=== PATIENT | female | born 1960 | race African-American/Black ===

== ENCOUNTER 2024-08-12 13:27 | Inpatient (IN) | payer MEDICAID, OTHER ==
[~2024-08-12] VITALS: Ht 167.6 cm; Wt 113.4 kg
[2024-08-12] MEDS ORDERED: NICO-724 PO (14:18)
[2024-08-12] MEDS ORDERED: AMLO-212 PO (14:18)
[2024-08-12] MEDS ORDERED: BUPR-53 PO (14:18)
[2024-08-12] MEDS ORDERED: BUPR-78 PO (14:18)
[2024-08-12 14:45] LABS: BASOPHILS % (AUTO) 0.4 % (0.0-2.0); EOSINOPHILS % (AUTO) 0.5 % (0.0-7.0); HEMATOCRIT 40.7 % (31.2-41.9); HEMOGLOBIN 13.4 g/dL (10.9-14.3); LYMPHOCYTES # (AUTO) 0.9 K/uL (0.8-4.8); MEAN CORPUSCULAR HGB CONC 33 g/dL (32.3-35.6); MEAN CORPUSCULAR VOLUME 97.2 fL (75.5-95.3); MONOCYTES # (AUTO) 0.6 K/uL (0.1-1.30); MONOCYTES % (AUTO) 10.7 % (0.0-11.0); NEUTROPHILS # (AUTO) 3.7 K/uL (1.8-8.9); NEUTROPHILS % (AUTO) 71.4 % (38.5-71.5); PLATELET COUNT (AUTO) 319 K/uL (179-408); RED BLOOD CELL COUNT(AUTO) 4.18 MIL/uL (3.63-4.92); RED CELL DISTRIBUTION WIDTH 13.3 % (12.3-17.7); WHITE BLOOD COUNT (AUTO) 5.2 K/uL (3.8-11.8)
[2024-08-12 14:46] LABS: DIFFERENTIAL COMMENT 1
[2024-08-12 14:48] LABS: CALCIUM 9.4 mg/dL (8.5-10.1); CARBON DIOXIDE 30 mmol/L (21-32); CHLORIDE 99 mmol/L (98-107); CREATININE 0.8 mg/dL (0.6-1.3); GLUCOSE 86 mg/dL (74-106); POTASSIUM 3.9 mmol/L (3.5-5.1); SODIUM SERUM 139 mmol/L (136-145); UREA NITROGEN, BLOOD 13 mg/dL (7-18)
[2024-08-12 14:59] LABS: ALANINE AMINOTRANSFERASE 53 U/L (14-59); ALBUMIN 4.1 g/dL (3.4-5.0); ALKALINE PHOSPHATASE 93 U/L (50-136); ASPARTATE AMINOTRANSFERASE 46 U/L (15-37); BILIRUBIN,DIRECT 0.2 mg/dL (0.0-0.2); BILIRUBIN,TOTAL 0.5 mg/dL (0.2-1.0); NT-PRO BNP 526 pg/mL (0-125); TOTAL PROTEIN, SERUM 8.4 g/dL (6.4-8.2)
[2024-08-12] MEDS ORDERED: hydrALAZINE HCL 20 MG/1 ML VIAL ONE ×2 (16:08→18:17)
[2024-08-12] MEDS ORDERED: MORPHINE SULFATE 4 MG/1 ML DISP.SYRIN ONE (16:08)
[2024-08-12] MEDS ORDERED: ONDANSETRON 4 MG/2 ML VIAL ONE ×2 (16:08→20:22)
[2024-08-12] MEDS: hydrALAZINE HCL 20 MG/1 ML VIAL IV ONE ×2 (16:20→18:19)
[2024-08-12] MEDS: MORPHINE SULFATE 4 MG/1 ML DISP.SYRIN IV ONE (16:21)
[2024-08-12] MEDS: ONDANSETRON 4 MG/2 ML VIAL IV ONE ×2 (16:21→19:25)
[2024-08-12] MEDS ORDERED: FENTANYL CITRATE 100 MCG/2 ML AMPUL ONE (16:29)
[2024-08-12] MEDS: FENTANYL CITRATE 100 MCG/2 ML AMPUL IV ONE (16:33)
[2024-08-12] MEDS ORDERED: ACETAMINOPHEN 325 MG TABLET PO PRN (18:30)
[2024-08-12] MEDS ORDERED: hydrALAZINE HCL 20 MG/1 ML VIAL IV PRN (18:30)
[2024-08-12] MEDS ORDERED: MAGNESIUM HYDROXIDE 30 ML LIQUID UDC PO PRN (18:30)
[2024-08-12] MEDS ORDERED: REMEDY ESSENTIAL ZINC PASTE 113 GM TP PRN (18:30)
[2024-08-12] MEDS ORDERED: THIAMINE HCL 200 MG/2 ML VIAL ONE (20:02)
[2024-08-12] MEDS: THIAMINE HCL INJ 100 MG in IV DEXTROSE 5% 50 ML IV SCH (20:10)
[2024-08-12] MEDS ORDERED: HYDROMORPHONE 1 MG/1 ML DISP.SYRIN ONE (20:22)
[2024-08-12] MEDS: HYDROMORPHONE 1 MG/1 ML DISP.SYRIN IV ONE (20:25)
[2024-08-12] MEDS ORDERED: ACETAMINOPHEN 500 MG TABLET ONE (21:29)
[2024-08-12] MEDS ORDERED: METOCLOPRAMIDE HCL 10 MG/2 ML VIAL ONE (21:29)
[2024-08-12] MEDS: METOCLOPRAMIDE HCL 10 MG/2 ML VIAL IV ONE (21:30)
[2024-08-12] MEDS: ACETAMINOPHEN 500 MG TABLET PO ONE (21:30)
[2024-08-12 23:30] LABS: *BLOOD, URINE NEGATIVE (NEGATIVE); *CLARITY,URINE CLEAR (CLEAR); *COLOR,URINE YELLOW (YELLOW); *KETONES,URINE TRACE (NEGATIVE); *PROTEIN,URINE 2+ (NEGATIVE); LEUKOCYTE ESTERASE ,URINE NEGATIVE (NEGATIVE); NITRITE, URINE NEGATIVE (NEGATIVE); UGLUCOSE NEGATIVE (NEGATIVE)
[2024-08-12 23:36] LABS: *BILIRUBIN,URIN 2+ (NEGATIVE)
[2024-08-12 23:56] LABS: RBC,URINE 0-3 /HPF (0-3); WBC,URINE 0-3 /HPF (0-3)
[2024-08-12 23:57] LABS: BACTERIA,URINE FEW /HPF (NONE SEEN); SQUAMOUS EPITHELIAL CELL,UR FEW /HPF (NONE SEEN); YEAST,URINE NONE SEEN /HPF (NONE SEEN)
[2024-08-12 23:58] LABS: MUCUS,URINE FEW /LPF (0-FEW)
[2024-08-13 00:21] VITALS: BP 151/79; TEMP 98.7; O2SAT 93
[2024-08-13] MEDS ORDERED: THIAMINE HCL INJ 100 MG in IV DEXTROSE 5% 50 ML IV SCH ×2 (05:00→20:00)
[2024-08-13 05:35] VITALS: BP 158/96; TEMP 98.6; O2SAT 95
[2024-08-13 07:01] LABS: BASOPHILS % (AUTO) 1.1 % (0.0-2.0); EOSINOPHILS % (AUTO) 0.8 % (0.0-7.0); HEMATOCRIT 38.3 % (31.2-41.9); HEMOGLOBIN 12.9 g/dL (10.9-14.3); LYMPHOCYTES % (AUTO) 22.1 % (20.5-51.5); MEAN CORPUSCULAR HEMOGLOBIN 32.9 uug (24.7-32.8); MEAN CORPUSCULAR HGB CONC 34 g/dL (32.3-35.6); MEAN CORPUSCULAR VOLUME 97.2 fL (75.5-95.3); MONOCYTES # (AUTO) 0.6 K/uL (0.1-1.30); MONOCYTES % (AUTO) 12.9 % (0.0-11.0); NEUTROPHILS # (AUTO) 2.9 K/uL (1.8-8.9); NEUTROPHILS % (AUTO) 63.1 % (38.5-71.5); PLATELET COUNT (AUTO) 328 K/uL (179-408); RED BLOOD CELL COUNT(AUTO) 3.94 MIL/uL (3.63-4.92); RED CELL DISTRIBUTION WIDTH 13.2 % (12.3-17.7); WHITE BLOOD COUNT (AUTO) 4.7 K/uL (3.8-11.8)
[2024-08-13 07:33] LABS: ALBUMIN 3.8 g/dL (3.4-5.0); CALCIUM 9.1 mg/dL (8.5-10.1); CREATININE 1.2 mg/dL (0.6-1.3); MAGNESIUM 2.2 mg/dL (1.8-2.4); PHOSPHOROUS 4.5 mg/dL (2.5-4.9); POTASSIUM 3.9 mmol/L (3.5-5.1); TOTAL PROTEIN, SERUM 7.5 g/dL (6.4-8.2)
[2024-08-13 07:57] VITALS: BP 151/91; TEMP 98.2; O2SAT 94
[2024-08-13] MEDS: ONDANSETRON 4 MG/2 ML VIAL IV PRN (08:36)
[2024-08-13] MEDS: AMLODIPINE 10 MG TABLET PO SCH (08:37)
[2024-08-13] MEDS: buPROPion XL 150 MG TAB.SR.24H PO SCH (08:37)
[2024-08-13] MEDS: LOSARTAN POTASSIUM 50 MG TABLET PO SCH (08:37)
[2024-08-13] MEDS: CHLORDIAZEPOXIDE HCL 25 MG CAPSULE PO PRN (08:37)
[2024-08-13] MEDS ORDERED: AMLODIPINE 5 MG TABLET PO SCH (09:00)
[2024-08-13 11:43] VITALS: BP 142/84; TEMP 98.6; O2SAT 96
[2024-08-13] MEDS ORDERED: NAPROXEN 500 MG TABLET PO PRN (15:00)
[2024-08-13] MEDS ORDERED: IV NORMAL SALINE 250 ML IV ONE (16:02)
[2024-08-13] MEDS ORDERED: IOHEXOL 350 100 ML INFUS..BTL ONE (16:02)
[2024-08-13] MEDS ORDERED: SWABABLE VALVE TRANSFER SET EA MC ONE (16:02)
[2024-08-13 16:30] VITALS: BP 147/86; TEMP 98.6; O2SAT 96
[2024-08-13 19:00] VITALS: BP 150/81; TEMP 99; O2SAT 95
[2024-08-13] MEDS: THIAMINE HCL 100 MG TABLET PO SCH (20:11)
[2024-08-13] MEDS: ATORVASTATIN 20 MG TABLET PO SCH (20:11)
[2024-08-14] VITALS: BP 145/82; TEMP 98.6; O2SAT 96
[2024-08-14 04:00] VITALS: BP 151/94; TEMP 98.4; O2SAT 95
[2024-08-14 07:50] VITALS: BP 133/92; TEMP 98.5; O2SAT 98
[2024-08-14 07:52] LABS: BASOPHILS % (AUTO) 0.8 % (0.0-2.0); EOSINOPHILS # (AUTO) 0.1 K/uL (0.0-0.7); EOSINOPHILS % (AUTO) 3.4 % (0.0-7.0); HEMATOCRIT 37.6 % (31.2-41.9); HEMOGLOBIN 12.8 g/dL (10.9-14.3); LYMPHOCYTES % (AUTO) 28.2 % (20.5-51.5); MEAN CORPUSCULAR HGB CONC 34 g/dL (32.3-35.6); MEAN CORPUSCULAR VOLUME 96.7 fL (75.5-95.3); MONOCYTES # (AUTO) 0.5 K/uL (0.1-1.30); MONOCYTES % (AUTO) 14.7 % (0.0-11.0); NEUTROPHILS # (AUTO) 1.8 K/uL (1.8-8.9); NEUTROPHILS % (AUTO) 52.9 % (38.5-71.5); PLATELET COUNT (AUTO) 307 K/uL (179-408); RED BLOOD CELL COUNT(AUTO) 3.89 MIL/uL (3.63-4.92); RED CELL DISTRIBUTION WIDTH 12.9 % (12.3-17.7); WHITE BLOOD COUNT (AUTO) 3.4 K/uL (3.8-11.8)
[2024-08-14 07:58] LABS: DIFFERENTIAL COMMENT 1
[2024-08-14 08:08] LABS: CALCIUM 9.7 mg/dL (8.5-10.1); CREATININE 1.2 mg/dL (0.6-1.3); POTASSIUM 3.8 mmol/L (3.5-5.1)
[2024-08-14] MEDS: HYDROCHLOROTHIAZIDE 25 MG TABLET PO SCH (08:37)
[2024-08-14 08:39] VITALS: BP 151/94
[2024-08-14] MEDS ORDERED: METOPROLOL TARTRATE 25 MG TABLET PO SCH (09:15)
[2024-08-14] MEDS ORDERED: AMLO10TA59 PO (10:33)
[2024-08-14] MEDS ORDERED: LOSA1TAB36 PO (10:33)
[2024-08-14] MEDS ORDERED: ATOR20TA PO (10:33)
[2024-08-14] MEDS ORDERED: NAPR-1164 PO (10:33)
== END 2024-08-14 11:15 | disposition home or self-care (01) | DRG 199 ==
LOC: ER 13:27 → TELE3 21:38 → MEDSURG3 08-14 09:10
PROVIDERS: ADMIT Nurse Practitioner Acute Care; ATTEND Nurse Practitioner Acute Care
DX: I16.9 Hypertensive crisis, unspecified (principal); I11.9 Hypertensive heart disease without heart failure; E66.9 Obesity, unspecified; F10.10 Alcohol abuse, uncomplicated; F17.210 Nicotine dependence, cigarettes, uncomplicated; Z68.41 Body mass index [BMI] 40.0-44.9, adult; Z59.01 Sheltered homelessness; R51.9 Headache, unspecified; Z88.5 Allergy status to narcotic agent; R00.1 Bradycardia, unspecified; R09.89 Other specified symptoms and signs involving the circulatory and respiratory systems; Z79.899 Other long term (current) drug therapy
CPT/HCPCS: 36415; 70450; 71045; 83735; 84100; 84484; 85025; 85730; 93307; A4606; A4663; A9150; G0378; J0360; J1171; J2270; J2405; J2765; J3010; J3411; Q9967